=== PATIENT | male | born 1990 | race Caucasian/White ===

== ENCOUNTER 2017-06-24 19:25 | Emergency (ER) | payer OTHER ==
[~2017-06-24] VITALS: Ht 185.4 cm; Wt 149.7 kg
--- NOTE | ~2017-06-24 | CR157 ---
[facility] A Service of [facility] & [facility] RADIOLOGY TEXT RESULTS PATIENT: FLYNN HOPSON JR LOCATION: CFTX : 88 UNIT #: [id number] AGE: [address]: Luisana Muñoz APRN SEX: M ORDER DR: [id number] [facility] [address] [place], [place] [address] [id number] E MR#: [id number] Acc #: [id number] NAME: FLYNN HOPSON : 1990 SEX: M STUDY DATE/TIME: 06/24/2017 21:50 UNIT: [facility] ROOM: STUDY DESCRIPTION: CR Humerus Min 2 View Rt Attending Physician: Luisana Muñoz A.P.R.N. Ordering Physician: Luisana Muñoz A.P.R.N. Primary Care Physician: No Primary Care Physician MEDICAL IMAGING REPORT This report is preliminary unless electronic signature is present EXAM Right humerus series, dated 06/24/2017. COMPARISON None. HISTORY Right posterior upper arm pain, possible foreign body. Patient got bitten by a dog today. FINDINGS Three images of two views of the right humerus were attempted. No acute displaced fracture or dislocation is seen in the humerus. There are lucencies noted within the soft tissues of the ogr-[id number]-omtbtu arm extending to the elbow, likely subcutaneous emphysema given the history of dog bite. Dictated by... Harshal Bunch M.D. THIS IS AN ELECTRONICALLY VERIFIED REPORT Harshal Bunch M.D. at 07/01/2017 6:59 AM CPR/jchencho TD: 06/24/2017 23:34 JOB #: [id number] MEDICAL IMAGING REPORT Page 1 of 1 COPY
[~2017-06-24 19:25] MED LIST: BENADRYL25 M3 PO; BP MED; CATAPRES-TTS-10.1 M1 PO; NORVASC10 MG PO; PREDNISONE PO; TRIAMCINOLONE AC1 GM EXT; TYLENOL #3 PO; VOLTAREN75 MG PO
== END 2017-06-24 23:25 | disposition home or self-care (01) ==
LOC: CED 19:25 → CFTX 19:25
DX: S41.151A Open bite of right upper arm, initial encounter (principal); S31.050A Open bite of lower back and pelvis without penetration into retroperitoneum, initial encounter; F17.210 Nicotine dependence, cigarettes, uncomplicated; Z23 Encounter for immunization; W54.0XXA Bitten by dog, initial encounter; Y92.009 Unspecified place in unspecified non-institutional (private) residence as the place of occurrence of the external cause
CPT/HCPCS: 12002; 73060; 90471; 90715; 99283